=== PATIENT | female | born 1975 | race Two or more races ===

== ENCOUNTER 2018-05-15 11:53 | Emergency (ER) | payer OTHER ==
[~2018-05-15] VITALS: Ht 154.9 cm; Wt 39.9 kg
[2018-05-15 11:59] VITALS: Ht 154.9 cm; Wt 39.9 kg
[2018-05-15 13:15] LABS: BASOPHIL % 0.3 % (0-2); PLATELET COUNT 190 x10^3mcL (130-400); RED CELL DISTRIBUTION WIDTH 13.9 % (11.5-14.5)
[2018-05-15 13:31] LABS: CALCIUM 8.7 mg/dL (8.5-10.1); CARBON DIOXIDE 24.2 mmol/L (21-32); CHLORIDE SERUM 106 mmol/L (98-107); CREATININE SERUM 0.8 mg/dL (0.6-1.0); GFR1 > 60 mL/min; GLUCOSE SERUM 81 mg/dL (74-106); POTASSIUM SERUM 4.4 mmol/L (3.5-5.1); SODIUM SERUM 138 mmol/L (136-145)
[2018-05-15 13:36] LABS: ALBUMIN 3.7 g/dL (3.4-5.0); ALKALINE PHOSPHATASE 58 U/L (46-116); ALT/SGPT 21 U/L (14-59); AST/SGOT 23 U/L (15-37); BILIRUBIN TOTAL 1.28 mg/dL (0.20-1.00); LIPASE 142 IU/L (73-393); TOTAL PROTEIN, SERUM 7.1 g/dL (6.4-8.2)
[2018-05-15 15:47] VITALS: BP 128/74
== END 2018-05-15 15:47 | disposition home or self-care (01) ==
LOC: ED 11:53
PROVIDERS: Emergency Medicine
DX: R10.2 Pelvic and perineal pain (principal)
CPT/HCPCS: J1885; J2405; J3010